=== PATIENT | female | born 1950 | race African-American/Black ===

== ENCOUNTER → 2020-10-06 10:21 | Outpatient (CLI) | payer MEDICARE, OTHER, SELFPAY ==
--- NOTE | ~2020-10-06 | MM_ITS ---
EXAMINATION: MM screening ricarda BI w schuyler HISTORY: Screening mammogram TECHNIQUE: Craniocaudal and mediolateral oblique 3-D tomosynthesis images were obtained and synthetic 2-D images were generated. CAD analysis was submitted and interpreted. COMPARISON: 05/23/2018, 04/12/2016, 09/02/2014 bilateral digital screening mammogram examinations BREAST PARENCHYMAL COMPOSITION: The breasts are heterogeneously dense, which may obscure small masses . FINDINGS: Biopsy marker on the left; history of prior benign left breast biopsy. There is architectural distortion in the anterior mid to upper outer left breast. Diagnostic left ricarda mogram and left breast ultrasound examination are recommended. Otherwise there is no evidence of suspicious mass, calcification, or architectural distortion to sugg est malignancy in either breast. There has been no other suspicious interval change. IMPRESSION: 1. Architectural distortion in the mid upper outer left breast 2. Diagnostic mammogram and left breast ultrasound examination are recommended. BI-RADS Category 0: Incomplete: Needs additional imaging evaluation. Reviewed, dictated and finalized at location A.
== END ==
DX: Z12.31 Encounter for screening mammogram for malignant neoplasm of breast (principal); R92.8 Other abnormal and inconclusive findings on diagnostic imaging of breast
CPT/HCPCS: 77063; 77067

== ENCOUNTER → 2020-12-19 07:49 | Outpatient (CLI) | payer MEDICARE, OTHER, SELFPAY ==
--- NOTE | ~2020-12-19 | MMUS_ITS ---
EXAMINATION: MM diagnostic ricarda LT w schuyler, US breast LT limited HISTORY: Possible left breast architectural distortion on screening mammogram TECHNIQUE: Additional 3-D tomosynthesis images of the left breast were performed and synthetic 2-D im ages were generated. CAD analysis was submitted and interpreted. High resolution limited left breast ultrasound was performed. COMPARISON: 10/06/2020, 05/23/2018, 04/12/2016 BREAST PARENCHYMAL COMPOSITION: The breasts are heterogeneously dense, which may obscure small masses . FINDINGS: MAMMOGRAPHIC FINDINGS: There is a return to baseline fibroglandular appearance with spot compression of the left breast in t he area questioned on screening mammogram. ULTRASOUND: There is no evidence of focal abnormal solid or cystic mass in the vicinity of the mammographic findi ng in question. IMPRESSION: 1. No mammographic or sonographic evidence of malignancy. 2. Recommend routine screening mammography in one year. BI-RADS Category 1: Negative Reviewed, dictated and finalized at location A. IMPRESSION: 1. No mammographic or sonographic evidence of malignancy. 2. Recommend routine screening mammography in one year. BI-RADS Category 1: Negative
== END ==
PROVIDERS: Visit Provider Internal Medicine
DX: R92.8 Other abnormal and inconclusive findings on diagnostic imaging of breast (principal)
CPT/HCPCS: 76642; 77061; 77065; G0279

== ENCOUNTER → 2022-03-12 13:37 | Outpatient (CLI) | payer MEDICARE, OTHER, SELFPAY ==
--- NOTE | ~2022-03-12 | MM_ITS ---
EXAMINATION: MM screening ricarda BI w schuyler HISTORY: Screening mammogram TECHNIQUE: Craniocaudal and mediolateral oblique 3-D tomosynthesis images were obtained and synthetic 2-D images were generated. CAD analysis was submitted and interpreted. COMPARISON: 12/19/2020 diagnostic left mammogram and limited left breast ultrasound 10/06/2020, 05/23/2018 bilateral screening mammogram examinations 04/12/2016 bilateral screening mammogram BREAST PARENCHYMAL COMPOSITION: The breasts are heterogeneously dense, which may obscure small masses . FINDINGS: There is architectural distortion in the outer left breast at mid depth. Diagnostic left ma mmogram and left breast ultrasound examination are recommended. There is an approximately 2.8 mm high density in the anterior central right breast with radiating rose ear densities) clinical Tomosynthesis image 46/66). Diagnostic right mammogram and right breast ultra sound examination are recommended.. IMPRESSION: 1. Bilateral mammographic asymmetries 2. Diagnostic bilateral mammogram and bilateral breast ultrasound examination are recommended BI-RADS Category 0: Incomplete: Needs additional imaging evaluation. Reviewed, dictated and finalized at location A. IMPRESSION: 1. Bilateral mammographic asymmetries 2. Diagnostic bilateral mammogram and bilateral breast ultrasound examination a re recommended BI-RADS Category 0: Incomplete: Needs additional imaging evaluation.
== END ==
PROVIDERS: PCP Internal Medicine; Visit Provider Internal Medicine
DX: Z12.31 Encounter for screening mammogram for malignant neoplasm of breast (principal); R92.8 Other abnormal and inconclusive findings on diagnostic imaging of breast
CPT/HCPCS: 77063; 77067

== ENCOUNTER → 2022-05-25 09:52 | Outpatient (CLI) | payer MEDICARE, OTHER, SELFPAY ==
--- NOTE | ~2022-05-25 | MMUS_ITS ---
EXAMINATION: MM diagnostic ricarda BI w schuyler, US breast BI complete HISTORY: Follow-up bilateral breast asymmetries TECHNIQUE: Additional 3-D tomosynthesis images of the breasts were performed and synthetic 2-D images were generated. CAD analysis was submitted and interpreted. High resolution bilateral complete breas t ultrasound was performed. COMPARISON: Comparison to multiple prior studies sequentially, with oldest reviewed study dated 09/02. BREAST PARENCHYMAL COMPOSITION: Breast composed of scattered areas of fibroglandular density FINDINGS: MAMMOGRAPHIC FINDINGS: There are no suspicious masses, calcifications or architectural distortion in either breast to sugges t malignancy. ULTRASOUND: Complete bilateral US of all 4 quadrants of the breasts and retroareolar region was reviewed. Normal heterogeneous echotexture without focal solid or cystic mass in either breast. IMPRESSION: 1. No evidence for malignancy in either breast. 2. Routine yearly screening mammogram and regular clinical breast examination are recommended. BI-RADS Category 1: Negative Reviewed, dictated and finalized at location B. [facility]ES IMPRESSION: 1. No evidence for malignancy in either breast. 2. Routine yearly screening mammogram and regular clinical breast examination a re recommended. BI-RADS Category 1: Negative
== END ==
PROVIDERS: PCP Internal Medicine; Visit Provider Internal Medicine
DX: R92.8 Other abnormal and inconclusive findings on diagnostic imaging of breast (principal)
CPT/HCPCS: 76641; 77062; 77066; G0279

== ENCOUNTER 2023-08-09 04:32 | Day surgery (SDC) | payer MEDICARE, OTHER, SELFPAY ==
[2023-07-29 11:13] VITALS: BMI 29.1
--- NOTE | 2023-08-05 13:07 | SUR.PREOP ---
Patient called regarding upcoming procedure. Reviewed preop instructions, appointment times, and procedure prep.
--- NOTE | 2023-08-08 15:14 | PM.HPGS ---
History of Present Illness History of Present Illness Consent: Risks, benefits, and alternatives have been discussed and questions answered. Patient agrees to proceed with procedure. Chief complaint: hx colon polyps Narrative: Argelia Solis is a 73 year old female referred for colon cancer screening. She had a small polyp removed at the time of her last colonoscopy in 2018. Review of Systems Review of Systems: All systems reviewed & are unremarkable except as noted in HPI and below PMFSH Social History Social History Smoking status: Never smoker Alcohol intake: current Substance use: never Substance use type: does not use Living arrangements: with family Spiritual care concerns: No Meds Home Medications and Allergies Home Medications Medication Instructions Recorded Confirmed Type Prevagen 1 tab-cap PO DAILY 07/29/23 08/09/23 History alprazolam 0.5 mg tablet 0.5 mg PO TID PRN Anxiety 07/29/23 08/09/23 History apixaban 5 mg tablet (Eliquis) 2.5 mg PO PRN PRN DVT 07/29/23 08/09/23 History ascorbic acid (vitamin C) 500 mg 1,000 mg PO DAILY 07/29/23 08/09/23 History tablet cetirizine 10 mg capsule (Zyrtec) 10 mg PO DAILY 07/29/23 08/09/23 History cholecalciferol (vitamin D3) 125 250 mcg PO DAILY 07/29/23 08/09/23 History mcg (5,000 unit) tablet (Vitamin D3) fluticasone propionate 50 1 spray intranasal DAILY 07/29/23 08/09/23 History mcg/actuation nasal spray,suspension spironolactone 50 mg tablet 50 mg PO DAILY 07/29/23 08/09/23 History Allergies Allergy/AdvReac Type Severity Reaction Status Date / Time aspirin Allergy Severe Anaphylaxis Verified 08/09/23 12:42 morphine Allergy Severe Difficulty Verified 08/09/23 12:42 Breathing Penicillins Allergy Severe Dyspnea / Verified 08/09/23 12:42 SOB Sulfa (Sulfonamide Allergy Severe Anaphylaxis Verified 08/09/23 12:42 Antibiotics) Exam Resp: Auscultation: clear to auscultation bilaterally Cardio: Rate: regular rate Rhythm: regular rhythm GI: GI Palp: Yes Soft to palpation and No Tenderness to palpation present (GI) Assessment and Plan Assessment and plan (1) Colon cancer screening: Code(s): Z12.11 - Encounter for screening for malignant neoplasm of colon Status: Acute Assessment and Plan: Colonoscopy with possible biopsy or polypectomy or cautery or injection of substances.
[2023-08-09 12:44] VITALS: BP 129/82; PULSE 95; RESP 16; TEMP 36.2; O2SAT 100
[2023-08-09] MEDS: LACTATED RINGERS 1,000 ML 150 ML IV CONT (12:48)
--- NOTE | 2023-08-09 13:18 | WPDANESEPPF ---
Anes - Initial Pre Proc Eval Procedure: Operation Date: 08/09/23 14:00 Proposed Procedures p Colonoscopy - Sincere Escobar MD Date/Time: 08/09/23 13:18 Surgeon: Sincere Escobar MD Pre Op Diagnosis: hx colon polyps Patient Data Age: 73 Gender: F Height: 1.65 m Weight: 82 kg Last Vital Signs Temp 36.2 C L 08/09/23 12:44 Pulse 95 08/09/23 12:44 Resp 16 08/09/23 12:44 BP 129/82 08/09/23 12:44 Pulse Ox 100 08/09/23 12:44 O2 Del Method Room Air 08/09/23 12:44 Allergies Allergy/AdvReac Type Severity Reaction Status Date / Time aspirin Allergy Severe Anaphylaxis Verified 08/09/23 12:42 morphine Allergy Severe Difficulty Verified 08/09/23 12:42 Breathing Penicillins Allergy Severe Dyspnea / Verified 08/09/23 12:42 SOB Sulfa (Sulfonamide Allergy Severe Anaphylaxis Verified 08/09/23 12:42 Antibiotics) Home Medications Medication Instructions Recorded Confirmed Type Prevagen 1 tab-cap PO DAILY 07/29/23 08/09/23 History alprazolam 0.5 mg tablet 0.5 mg PO TID PRN Anxiety 07/29/23 08/09/23 History apixaban 5 mg tablet (Eliquis) 2.5 mg PO PRN PRN DVT 07/29/23 08/09/23 History ascorbic acid (vitamin C) 500 mg 1,000 mg PO DAILY 07/29/23 08/09/23 History tablet cetirizine 10 mg capsule (Zyrtec) 10 mg PO DAILY 07/29/23 08/09/23 History cholecalciferol (vitamin D3) 125 250 mcg PO DAILY 07/29/23 08/09/23 History mcg (5,000 unit) tablet (Vitamin D3) fluticasone propionate 50 1 spray intranasal DAILY 07/29/23 08/09/23 History mcg/actuation nasal spray,suspension spironolactone 50 mg tablet 50 mg PO DAILY 07/29/23 08/09/23 History Patient hx anesthesia problems: none Family hx anesthesia problems: none Results Review: All pre-operative results and documents have been reviewed as part of the pre-operative evaluation. [facility] Social History Social History Smoking status: Never smoker Alcohol intake: current Substance use: never Substance use type: does not use Living arrangements: with family Spiritual care concerns: No Anes - Eval Final PreProcedure Day of Procedure 08/09/23 13:18 Patient weight: normal Heart: regular rate and rhythm Lungs: clear to auscultation Airway: Mallampati scale class II Neurological: alert and oriented Last oral intake: >/= 8 hours ASA classification: III Emergent: no Anesthetic plan: proceed Anesthesia type and monitoring: general GIVS and standard monitoring Results Review: All pre-operative results and documents have been reviewed as part of the pre-operative evaluation. Informed Consent: The patient's anesthetic plan and its attendant risks and benefits were discussed with the patient/family/POA. Questions were solicited and answers provided to the satisfaction of the patient/family/POA.
[2023-08-09 14:30] VITALS: BP 111/65; PULSE 74; RESP 16; O2SAT 99
--- NOTE | 2023-08-09 14:39 | SUR.OPER ---
Dr. Escobar aware that one of the transverse colon polyps cold snared was not retrieved
[2023-08-09 14:40] VITALS: BP 120/76; PULSE 70; RESP 18; O2SAT 99
[2023-08-09 14:50] VITALS: BP 133/75; PULSE 64; RESP 18; O2SAT 99
== END 2023-08-09 15:11 | disposition home or self-care (01) ==
PROVIDERS: PCP Internal Medicine; Visit Provider Internal Medicine Gastroenterology
PROC: 0DJD8ZZ Inspection of Lower Intestinal Tract, Via Natural or Artificial Opening Endoscopic (ICD-10-PCS; CPT 45378; principal; 2023-08-09 14:00)
DX: Z12.11 Encounter for screening for malignant neoplasm of colon (principal); D12.3 Benign neoplasm of transverse colon; D12.2 Benign neoplasm of ascending colon; K64.8 Other hemorrhoids; Z79.01 Long term (current) use of anticoagulants
CPT/HCPCS: 45385; 45381; 45380; 88305; J2704; J7120

== ENCOUNTER 2023-08-23 14:56 | Outpatient (CLI) | payer MEDICARE, OTHER, SELFPAY ==
--- NOTE | ~2023-08-23 | MM_ITS ---
EXAMINATION: MM screening ricarda BI w schuyler HISTORY: Screening mammogram TECHNIQUE: Craniocaudal and mediolateral oblique 3-D tomosynthesis images were obtained and synthetic 2-D images were generated. CAD analysis was submitted and interpreted. COMPARISON: 05/25/2022 diagnostic bilateral mammogram and complete bilateral breast ultrasound examin ation 03/12/2022, 10/06/2020, 05/23/2018 bilateral screening mammogram examinations BREAST PARENCHYMAL COMPOSITION: The breasts are heterogeneously dense, which may obscure small masses . FINDINGS: There is focal asymmetry/architectural distortion the anterior central left breast. Diagnos tic left mammogram and left breast ultrasound examination are recommended. Otherwise no suspicious mass, architectural distortion, malignant calcification, skin thickening or r etraction or significant new or developing density of either breast is detected. IMPRESSION: 1. Focal asymmetry, anterior central left breast 2. Diagnostic left mammogram and left breast ultrasound examination are recommended BI-RADS Category 0: Incomplete: Needs additional imaging evaluation. Reviewed, dictated and finalized at location A. IMPRESSION: 1. Focal asymmetry, anterior central left breast 2. Diagnostic left mammogram and left breast ultrasound examination are recomme nded BI-RADS Category 0: Incomplete: Needs additional imaging evaluation.
== END 2023-08-23 14:57 ==
LOC: MICIMG 14:59
PROVIDERS: Visit Provider Internal Medicine
DX: Z12.31 Encounter for screening mammogram for malignant neoplasm of breast (principal); R92.8 Other abnormal and inconclusive findings on diagnostic imaging of breast
CPT/HCPCS: 77063; 77067